=== PATIENT | female | born 1985 | race Caucasian/White ===

== ENCOUNTER 2017-12-30 14:55 | Emergency (ER) | payer OTHER ==
[~2017-12-30] VITALS: Ht 170.2 cm; Wt 81.6 kg
--- NOTE | 2017-12-30 15:39 | RAD ---
EXAM: Right ankle, 3 views. HISTORY: Twisting injury. COMPARISON: None. FINDINGS: 3 views of the right ankle are obtained. There is no fracture, dislocation or subluxation. There is lateral ankle soft tissue swelling. The ankle mortise is intact. IMPRESSION: No acute osseous finding. Lateral predominant ankle soft tissue swelling. Electronically signed by: So Dick MD (12/30/2017 3:35 PM) [facility]
--- NOTE | 2017-12-30 15:43 | PHYS DOC ---
Past History Past Medical History: No Pertinent History Past Surgical History: No Surgical History Alcohol Use: None Drug Use: None Adult General Chief Complaint Chief Complaint: ANKLE PROBLEM HPI HPI 32-year-old female presents with right ankle pain. The patient was going across the grass when she slipped and rolled her ankle. She states that she rolled both ankles, but the right ankle joint without hurts at this time. She is able to walk on it but it is painful with weightbearing. The pain at its worse was 8 out of 10. She has swelling on the lateral aspect of the right ankle. He denies any other injuries or complaints. Review of Systems Review of Systems Constitutional: Denies fever or chills [] Eyes: Denies change in visual acuity, redness, or eye pain [] HENT: Denies nasal congestion or sore throat [] Respiratory: Denies cough or shortness of breath [] Cardiovascular: No additional information not addressed in HPI [] GI: Denies abdominal pain, nausea, vomiting, bloody stools or diarrhea [] : Denies dysuria or hematuria [] Musculoskeletal: Right ankle pain[] Integument: Denies rash or skin lesions [] Neurologic: Denies headache, focal weakness or sensory changes [] Endocrine: Denies polyuria or polydipsia [] All other systems were reviewed and found to be within normal limits, except as documented in this note. Allergies Allergies Allergies Coded Allergies Type Severity Reaction Last Updated Verified sulfamethoxazole Allergy Unknown 12/30/17 Yes trimethoprim Allergy Unknown 12/30/17 Yes Physical Exam Physical Exam Constitutional: Well developed, well nourished, no acute distress, non-toxic appearance. [] HENT: Normocephalic, atraumatic, bilateral external ears normal, oropharynx moist, no oral exudates, nose normal. [] Eyes: PERRLA, EOMI, conjunctiva normal, no discharge. [] Neck: Normal range of motion, no tenderness, supple, no stridor. [] Cardiovascular:Heart rate regular rhythm, no murmur [] Lungs & Thorax: Bilateral breath sounds clear to auscultation [] Abdomen: Bowel sounds normal, soft, no tenderness, no masses, no pulsatile masses. [] Skin: Warm, dry, no erythema, no rash. [] Back: No tenderness, no CVA tenderness. [] Extremities: Right lateral ankle swelling, no ecchymosis, pain with inversion.[ ] Neurologic: Alert and oriented X 3, normal motor function, normal sensory function, no focal deficits noted. [] Psychologic: Affect normal, judgement normal, mood normal. [] Current Patient Data Vital Signs Vital Signs Date Time Temp Pulse Resp B/P (MAP) Pulse Ox O2 Delivery O2 Flow Rate FiO2 12/30/17 15:17 97.5 116 18 97 Room Air EKG EKG [] Radiology/Procedures Radiology/Procedures [] Impressions: EXAM: Right ankle, 3 views. HISTORY: Twisting injury. COMPARISON: None. FINDINGS: 3 views of the right ankle are obtained. There is no fracture, dislocation or subluxation. There is lateral ankle soft tissue swelling. The ankle mortise is intact. IMPRESSION: No acute osseous finding. Lateral predominant ankle soft tissue swelling. Electronically signed by: So Dick MD (12/30/2017 3:35 PM) [facility] DICTATED AND SIGNED BY: SO DICK MD DATE: 12/30/17 1535 CC: NOÉ BRENNAN DO; [facility]; JUSTIN ECHEVARRIA DO ~ Course & Med Decision Making Course & Med Decision Making Pertinent Labs and Imaging studies reviewed. (See chart for details) Patient's ankle x-rays negative for fracture. She has a sprained the lateral ankle. I'll place her in an air splint. She is stable for discharge at this time. [] Dragon Disclaimer Dragon Disclaimer This electronic medical record was generated, in whole or in part, using a voice recognition dictation system. Departure Departure: Referrals: JUSTIN ECHEVARRIA DO (PCP) NOÉ BRENNAN DO Dec 30, 2017 15:43
[2017-12-30 16:01] VITALS: BP 129/91
== END 2017-12-30 16:02 | disposition home or self-care (01) ==
LOC: ER 14:55
DX: S93.401A Sprain of unspecified ligament of right ankle, initial encounter (principal); Z88.1 Allergy status to other antibiotic agents; Z88.2 Allergy status to sulfonamides; X50.9XXA Other and unspecified overexertion or strenuous movements or postures, initial encounter; Y93.89 Activity, other specified; Y92.89 Other specified places as the place of occurrence of the external cause; Y99.8 Other external cause status
CPT/HCPCS: 73610; 99284; L4350